=== PATIENT | male | born 1940 | race Caucasian/White ===

== ENCOUNTER 2019-03-20 10:49 | Day surgery (SDC) | payer OTHER ==
[~2019-03-20] VITALS: Ht 182.9 cm; Wt 79.0 kg
[~2019-03-20 10:49] MED LIST: LISI20 PO; ZOLP5 PO
--- NOTE | 2019-03-20 11:59 | NUR ---
03/20/19 1159 Lesvia Orozco 2 PLANTAR WARTS NOTED JUST INFERIOIR TO MASS AND ONE ON SOLE OF FOOT.
--- NOTE | 2019-03-20 12:53 | NUR ---
03/20/19 1253 JOSEPH CHURCHILL PATIENT SITTING UP IN CHAIR, TOLERATING PO INTAKE OF WATER AND COOKIES. VSS. PATIENT MEDICATED FOR PAIN WITH ORAL PAIN MEDICATION PER MD ORDER. ICE PACK TO LEFT POPLITEAL FOSSA. PATIENT'S FAMILY AT BEDSIDE.
[2019-03-23 15:09] LABS: Performing Lab SYMBIODX; Test Name TISSUE BLOCK
[2019-04-06 08:21] LABS: Result SEE PATHOTH RESULTS
== END 2019-03-20 13:22 | disposition home or self-care (01) ==
LOC: ORSCSDS 10:49
PROVIDERS: Orthopaedic Surgery
PROC: 0JBR0ZZ Excision of Left Foot Subcutaneous Tissue and Fascia, Open Approach (ICD-10-PCS; principal; 2019-03-20 12:15)
DX: D17.79 Benign lipomatous neoplasm of other sites (principal); I10 Essential (primary) hypertension; Z79.899 Other long term (current) drug therapy; F17.210 Nicotine dependence, cigarettes, uncomplicated
CPT/HCPCS: 88305; 88311; A9270-GY; J0690; J1100; J2405; J2704; J3010; J7120